=== PATIENT | male | born 1975 | race Hispanic/Latino ===

== ENCOUNTER 2022-04-17 18:00 | Outpatient (CLI) | payer BC | END 2022-04-17 18:01 | disposition home or self-care (01) | LOC: SLEEPLAB 18:00 | PROVIDERS: ATTEND Family Medicine | DX: G47.33 Obstructive sleep apnea (adult) (pediatric) (principal); R06.83 Snoring; G47.00 Insomnia, unspecified; E66.9 Obesity, unspecified; Z68.31 Body mass index [BMI] 31.0-31.9, adult | CPT/HCPCS: 95800 ==